=== PATIENT | female | born 1965 | race Caucasian/White ===

== ENCOUNTER 2018-06-17 17:25 | Emergency (ER) | payer SELFPAY ==
[2018-06-17 17:59] LABS: ABSOLUTE BASOPHILS # (AUTO) 0.1 10^3/uL (0.0-0.2); ABSOLUTE EOSINOPHILS # (AUTO) 0.4 10^3/uL (0.0-0.6); ABSOLUTE LYMPHOCYTES (AUTO) 2.3 10^3/uL (0.5-4.7); ABSOLUTE MONOCYTES (AUTO) 0.5 10^3/uL (0.1-1.4); ABSOLUTE NEUT (AUTO) 4.3 10^3/uL (1.7-8.2); BASOPHILS % (AUTO) 1.1 % (0-2); EOSINOPHILS % (AUTO) 5.1 % (0-6); HEMOGLOBIN 12.2 g/dL (12.0-15.5); LYMPHOCYTES % (AUTO) 30.2 % (13-45); MEAN CORPUSCULAR HEMOGLOBIN 31.6 pg (27.0-33.4); MEAN CORPUSCULAR HGB CONC 33.9 g/dL (32.0-36.0); MEAN CORPUSCULAR VOLUME 93 fl (80-97); MONOCYTES % (AUTO) 6.6 % (3-13); PLATELET COUNT 228 10^3/uL (150-450); RED BLOOD COUNT 3.86 10^6/uL (3.72-5.28); RED CELL DISTRIBUTION WIDTH 14.5 % (11.5-14.0); TOTAL CELLS COUNTED % (AUTO) 100 %; WHITE BLOOD COUNT 7.5 10^3/uL (4.0-10.5)
[2018-06-17 18:09] LABS: ALANINE AMINOTRANSFERASE 53 U/L (9-52); ALBUMIN 3.5 g/dL (3.5-5.0); ALCOHOL 283 mg/dL (NONE DETECTED); ALKALINE PHOSPHATASE 73 U/L (38-126); ANION GAP 11 (5-19); ASPARTATE AMINO TRANSFERASE 70 U/L (14-36); BILIRUBIN,DIRECT 0.2 mg/dL (0.0-0.4); BILIRUBIN,TOTAL 0.2 mg/dL (0.2-1.3); BLOOD UREA NITROGEN 8 mg/dL (7-20); CALCIUM 8.4 mg/dL (8.4-10.2); CARBON DIOXIDE 28 mmol/L (22-30); CHLORIDE 105 mmol/L (98-107); GLUCOSE 80 mg/dL (75-110); POTASSIUM 4.4 mmol/L (3.6-5.0); SODIUM 144.2 mmol/L (137-145); TOTAL PROTEIN 6.2 g/dL (6.3-8.2)
[2018-06-17 18:12] LABS: ACETAMINOPHEN < 10 ug/mL (10-30); SALICYLATE < 1.0 mg/dL (2.0-20.0)
--- NOTE | 2018-06-17 19:29 | ER Document Report ---
ED Psych Disorder / Suicide <MATTEO MUNGUIA - Last Filed: 06/18/18 00:05> - General Mode of Arrival: Medic Information source: Patient <MARY HARGROVE - Last Filed: 06/18/18 00:37> - General Stated Complaint: SUCIDAL IDEATION Time Seen by Provider: 06/17/18 19:05 Notes: This 52-year-old female patient comes emergency room by EMS claiming to be suicidal. She states she is depressed and having pain in her left wrist. She reports suffering a wrist fracture while picking berries in [facility]. She was treated there and has a splint or cast on her left wrist. She reports being in [facility] and taking a [employer] bus to the [facility] where she was a patient on 05/01/2018. She is very delighted with the care and treatment she received there and wants to go back. She apparently went back to [facility] after she was discharged, then got on a [employer] bus to return to [place]. For some unknown reason she got off the bus when it stopped here in [place]. She is homeless and the weather is quite bad and raining outside today. She is extremely intoxicated with an alcohol level of 283. She states she is supposed to be on Prozac and trazodone but has no money to buy the medication, but is able to smoke 1 pack per day of cigarettes, and get intoxicated on a regular basis. Her speech is somewhat tangential, she will start scratching her head and then speakas of being in the homeless care home in [facility] where there were multiple children and lice present. She will inappropriately laugh. She denies being intoxicated but wants to know "what did I blow". She repeatedly asks for medication for her anxiety, and each time I told her she is not going to be medicated as long as she is so intoxicated. The patient is listed in the [place] controlled substance database as Vesna Gallegos. The nurse reported to me that [facility] had requested they be contacted when she is discharged due to outstanding warrants for her arrest. (MARY HARGROVE) Past Medical History - General Information source: Patient - Social History Smoking Status: Current Every Day Smoker Cigarette use (# per day): Yes Frequency of alcohol use: Heavy Lives with: Homeless Family History: Reviewed & Not Pertinent Psychiatric Medical History: Reports: Hx Bipolar Disorder, Hx Depression Past Surgical History: Reports: Hx Appendectomy, Other - Right ankle ORIF <MATTEO MUNGUIA - Last Filed: 06/18/18 00:05> Review of Systems - Review of Systems Constitutional: No symptoms reported EENT: No symptoms reported Cardiovascular: No symptoms reported Respiratory: No symptoms reported Gastrointestinal: No symptoms reported Genitourinary: No symptoms reported Female Genitourinary: No symptoms reported Musculoskeletal: No symptoms reported Skin: No symptoms reported Hematologic/Lymphatic: No symptoms reported Neurological/Psychological: See HPI, Suicidal ideation -: Yes All other systems reviewed and negative <MATTEO MUNGUIA - Last Filed: 06/18/18 00:05> Physical Exam <MATTEO MUNGUIA - Last Filed: 06/18/18 00:05> <MARY HARGROVE - Last Filed: 06/18/18 00:37> - Vital signs Vitals: Temp Pulse Resp BP Pulse Ox 97 F L 76 16 122/80 100 06/17/18 20:45 06/17/18 20:45 06/17/18 20:45 06/17/18 20:45 06/17/18 20:45 - Notes Notes: Physical Exam: General: Alert, smells of EtOH, persistently eats crackers while talking during exam, disheveled. HEENT: Normocephalic. Atraumatic. PERRL. Extraocular movements intact. Oropharynx clear. Neck: Supple. Non-tender. Respiratory: No respiratory distress. Clear and equal breath sounds bilaterally. Cardiovascular: Regular rate and rhythm. Abdominal: Normal Inspection. Non-tender. No distension. Normal Bowel Sounds. Back: Non-tender. No deformity or step off. Extremities: Moves all four extremities. Upper extremities: Normal inspection. Normal ROM. Lower extremities: Left wrist and forearm is in splint Neurological: Normal cognition. AAOx4. Tangential speech. Psychological: Tangential speech. Laughs inappropriately. Skin: Warm. Dry. Normal color. (MATTEO MUNGUIA) Course - Laboratory Result Diagrams: 06/17/18 17:45 06/17/18 17:45 <MATTEO MUNGUIA - Last Filed: 06/18/18 00:05> - Laboratory Result Diagrams: 06/17/18 17:45 06/17/18 17:45 <MARY HARGROVE - Last Filed: 06/18/18 00:37> - Vital Signs Vital signs: Temp Pulse Resp BP Pulse Ox 97 F L 76 16 122/80 100 06/17/18 20:45 06/17/18 20:45 06/17/18 20:45 06/17/18 20:45 06/17/18 20:45 - Laboratory Laboratory results interpreted by me: 06/17/18 06/17/18 06/17/18 17:45 17:45 17:45 RDW 14.5 H Magnesium 2.4 H AST 70 H ALT 53 H Total Protein 6.2 L Salicylates < 1.0 L Acetaminophen < 10 L Discharge <MATTEO MUNGUIA - Last Filed: 06/18/18 00:05> <MARY HARGROVE - Last Filed: 06/18/18 00:37> - Discharge Clinical Impression: Homeless, Suicidal ideation Alcohol intoxication Qualifiers: Complication of substance-induced condition: uncomplicated Qualified Code(s): F10.920 - Alcohol use, unspecified with intoxication, uncomplicated Depression Qualifiers: Depression Type: unspecified Qualified Code(s): F32.9 - Major depressive disorder, single episode, unspecified Condition: Stable Scribe Attestation: 06/17/18 21:12 I personally performed the services described in the documentation, reviewed and edited the documentation which was dictated to the scribe in my presence, and it accurately records my words and actions. (MARY HARGROVE) Scribe Documentation - Scribe Written by Vandana:: Vandana Hanson, 06/18/2018 [id number] acting as scribe for :: Ignacio <MATTEO MUNGUIA - Last Filed: 06/18/18 00:05>
[2018-06-18] MEDS ORDERED: DIPHENHYDRAMINE HCL 25 MG CAPSULE PO ONE (00:35)
[2018-06-18 00:50] LABS: APPEARANCE,URINE CLEAR; BILIRUBIN,URINE NEGATIVE (NEGATIVE); COLOR,URINE STRAW; GLUCOSE, URINE NEGATIVE (NEGATIVE); KETONES,URINE NEGATIVE (NEGATIVE); LEUKOCYTE ESTERASE,URINE TRACE (NEGATIVE); NITRITE,URINE NEGATIVE (NEGATIVE); PROTEIN,URINE NEGATIVE (NEGATIVE); URINE SPECIFIC GRAVITY 1.004; UROBILINOGEN,URINE NEGATIVE mg/dL (<2.0)
[2018-06-18 01:06] LABS: URINE AMPHETAMINES SCREEN NEGATIVE; URINE BARBITURATES SCREEN NEGATIVE; URINE BENZODIAZEPINES SCREEN UNCONFIRMED POSITIVE; URINE COCAINE SCREEN NEGATIVE; URINE MARIJUANA (THC) SCREEN NEGATIVE; URINE METHADONE SCREEN NEGATIVE; URINE PHENCYCLIDINE SCREEN NEGATIVE
--- NOTE | 2018-06-18 03:01 | EKG REPORT ---
SEVERITY:- NORMAL ECG - SINUS RHYTHM : Confirmed by: Liss White MD 18-Jun-2018 03:00:35
--- NOTE | 2018-06-18 08:34 | PSYCHOLOGICAL NOTE ---
Psych Note - Psych Note Psych Note: Psych Note: Met with patient this morning. She immediately requested a "voucher for a bus back to [place]" once I introduced myself. Patient states that she would like to go back to [place] to see if she can get back into the [facility]. Patient had a prior stay there in April of 2018. Patient states that she is also worried about her suitcase that she stashed in the back of the [facility] in [place]. Patient denies suicide, as she had no intentions of harming herself and did not identify any means to do so. Patient states that she does not have any income but "borrows" money to get alcohol when she "needs" it. Patient could not identify "who" she borrows money from. Patient self identified herself as an "alcoholic", saying that drinking "makes her feel better". Patient has a a court date in [place] on 07/04/18 for having an open container of alcohol in a park setting. Patient states that she does not know how she will get back to [place] for her court date. Relatives live in [place] and estranged resides in [place], [place]. Diagnosis: F10.20 Alcohol Use Disorder Impression/Plan: Patient was alert, calm and cooperative during the assessment. Patient maintained good eye contact and was able to speak in a clear, organized manner. Patient was able to recall information and articulate that her primary concern now was to get back to [place], as she is currently homeless. Patient admits that she drinks beer almost everyday and "some hard liquor" when she can get " ahold" of it. Patient was in a good mood, again stating that she just needed to get her suitcase from the bus station and get back to [place].
--- NOTE | 2018-06-18 09:59 | ER Document Report ---
Doctor's Note Notes: 06/18/18 09:57 Medical rounds: Chart reviewed and patient interviewed briefly. Vital signs are normal. Laboratory values are satisfactory. Patient is alert, oriented, and cooperative. She denies suicidal intent. She is medically stable, pending evaluation and recommendations for disposition by psych.
[2018-06-18 10:58] VITALS: BP 132/74
== END 2018-06-18 10:11 | disposition home or self-care (01) ==
LOC: ER 17:25
DX: F32.9 Major depressive disorder, single episode, unspecified (principal); T43.226A Underdosing of selective serotonin reuptake inhibitors, initial encounter; T43.216A Underdosing of selective serotonin and norepinephrine reuptake inhibitors, initial encounter; Z91.120 Patient's intentional underdosing of medication regimen due to financial hardship; Z91.14 Patient's other noncompliance with medication regimen; R45.851 Suicidal ideations; F10.120 Alcohol abuse with intoxication, uncomplicated; Y90.8 Blood alcohol level of 240 mg/100 ml or more; S62.109D Fracture of unspecified carpal bone, unspecified wrist, subsequent encounter for fracture with routine healing; X58.XXXD Exposure to other specified factors, subsequent encounter; Z59.0 Homelessness; M25.532 Pain in left wrist; F17.210 Nicotine dependence, cigarettes, uncomplicated
CPT/HCPCS: 36415; 80053; 80307; 81001; 83735; 84703; 85025; 93005; 93010; 99285